=== PATIENT | female | born 1985 | race Caucasian/White ===

== ENCOUNTER 2021-07-21 05:45 | Emergency (ER) | payer SELFPAY ==
[~2021-07-21] VITALS: Ht 160 cm; Wt 72.6 kg
[2021-07-21 05:49] VITALS: BP_SYST 131
--- NOTE | 2021-07-21 05:55 | NUR ---
36 YR OLD FEMALE WITH COMPLAINT OF SUSPECTED KIDNEY INFECTION, PT STATES SHE HAS A LONG HISTORY AND HAS THE SYMPTOMS OF LOWER BACK PAIN 10/10, FEVER AND BURNING WITH URINATION. PT IS AUDIBLY CRYING IN PAIN, PT DENIES ANY
[2021-07-21 06:09] LABS: BILIRUBIN,URINE NEGATIVE (NEGATIVE); BLOOD, URINE 3+ (NEGATIVE); CLARITY/URINE CLEAR (CLEAR); COLOR,URINE YELLOW (YELLOW); GLUCOSE,URINE NEGATIVE (NEGATIVE); KETONES,URINE 2+ (NEGATIVE); LEUKOCYTE ESTERASE ,URINE 2+ (NEGATIVE); NITRITE, URINE NEGATIVE (NEGATIVE); PROTEIN URINE NEGATIVE (NEGATIVE); UROBILINOGEN,URINE 0.2 (0.2-1.0)
[2021-07-21 06:18] LABS: BACTERIA,URINE MODERATE /HPF (None Seen)
[2021-07-21 06:24] LABS: BARBITURATE, URINE NEGATIVE (NEG <=200); METHAMPHETAMINES SCREEN,URINE NEGATIVE (NEG <=500); URINE AMPHETAMINE NEGATIVE (NEG <=500)
[2021-07-21 06:25] LABS: BENZODIAZEPINE, URINE NEGATIVE (NEG <=150); CANNABINOID, URINE NEGATIVE (NEG <=50); COCAINE, URINE NEGATIVE (NEG <=150); OPIATE, URINE NEGATIVE (NEG <=100); PHENCYCLIDINE SCREEN,URINE NEGATIVE (NEG <=25); UR TRICYCLIC ANTIDEPRESSANTS NEGATIVE (NEG <=300); URINE METHADONE NEGATIVE (NEG <=200); URINE OXYCODONE SCREEN NEGATIVE (NEG <=100); URINE PROPOXYPHENE SCREEN NEGATIVE (NEG <=300)
[2021-07-21 06:27] LABS: HEMATOCRIT 41.5 % (36-48); HEMOGLOBIN 14.3 g/dL (12.0-16.0); MEAN CORPUSCULAR HEMOGLOBIN 31 pg (27-31); MEAN CORPUSCULAR HGB CONC 35 % (32-36); MEAN CORPUSCULAR VOLUME 89 fL (79.0-98.0); PLATELET COUNT (AUTO) 115 K/uL (130-430); RED BLOOD CELL COUNT(AUTO) 4.66 MIL/uL (4.2-6.2); RED CELL DISTRIBUTION WIDTH 13.2 % (9.0-15.0); WHITE BLOOD COUNT (AUTO) 3.2 K/uL (4.8-10.8)
--- NOTE | 2021-07-21 06:33 | NUR ---
RECEIVED PT FROM TRIAGE AMBULATE WITH STEADY GAIT C/O DYSURIA AND LOWER BACK PAIN X2 DAYS AND WORST THIS MORNING. PT STATED THE SHE TOOK UNPRESCRIBED BACTRIM AT HOME, SHE STATED THAT SHE HAS THE SAME SYMTOMS WHEN SHE HAD KIDNEY INFECTION FROM THE PAST. PER PT SHE ALSO HAVE PERINEAL IRRITATION. PMH:DENIES PRESENTED HERE AAO, NO SOB NOTED AND CRYING. WILL CONTINUE TO MONITOR.
[2021-07-21 06:34] LABS: CREATININE 0.91 mg/dL (0.55-1.30); POTASSIUM 3.9 mmol/L (3.5-5.1)
[2021-07-21 06:41] LABS: CALCIUM 6.9 mg/dL (8.4-11.0)
[2021-07-21] MEDS ORDERED: KETOROLAC TROMETHAMINE 60 MG/2 ML VIAL IM ONE (06:45)
[2021-07-21 06:54] LABS: C-REACTIVE PROTEIN QUANT 1.1 mg/dL (0-0.5)
[2021-07-21 07:05] LABS: BAND % (MANUAL) 4 % (0-6); BASOPHILS % (MANUAL) 0 % (0-2); EOSINOPHILS % (MANUAL) 5 % (0-7); LYMPHOCYTES % (MANUAL) 22 % (20-46); MONOCYTES % (MANUAL) 3 % (0-11)
[2021-07-21] MEDS ORDERED: MORPHINE 4 MG INJ. 4 MG/ML VIAL IM ONE (07:45)
[2021-07-21] MEDS ORDERED: HYDR-3917 PO (08:24)
[2021-07-21] MEDS ORDERED: TRAM50TA2 PO (08:39)
[2021-07-21 09:34] VITALS: BP_SYST 131
--- NOTE | 2021-07-21 09:35 | NUR ---
Patient given written and verbal discharge instructions and verbalizes understanding. ER MD discussed with patient the results and treatment provided. Patient in stable condition. ID arm band removed. Rx of TRAMADOL, NORCO given. Patient educated on pain management and to follow up with PMD. Pain Scale 5/10. Opportunity for questions provided and answered. Medication side effect fact sheet provided.
[2021-07-22] MEDS ORDERED: AMOX-423 PO (14:18)
== END 2021-07-21 09:35 | disposition home or self-care (01) ==
LOC: SED 05:45
DX: O26.891 Other specified pregnancy related conditions, first trimester (principal); M54.50 Low back pain, unspecified; Z3A.01 Less than 8 weeks gestation of pregnancy
CPT/HCPCS: 36415; 74176; 76376; 80048; 80307; 81000; 81025; 82150; 83690; 84702; 84703; 85007; 85027; 86140; 87086; 96372; 99284; J1885; J2270

== ENCOUNTER 2021-07-22 12:10 | Emergency (ER) | payer SELFPAY ==
[~2021-07-22] VITALS: Ht 160 cm; Wt 72.6 kg
[~2021-07-22 12:10] MED LIST: HYDR-3917 PO; TRAM50TA2 PO
[2021-07-22 12:20] VITALS: BP_SYST 115
--- NOTE | 2021-07-22 12:30 | NUR ---
Pt presents to ER BIB self c/o vaginal discomfort with discharge and trace amounts of blood at external labia. Pt states recent use and discontinuance of Bactrim. VS wnl pt aaox4.
--- NOTE | 2021-07-22 13:30 | NUR ---
PT with BS for MSE.
[2021-07-22] MEDS ORDERED: DIPHENHYDRAMINE HCL 25 MG CAPSULE PO ONE (13:45)
[2021-07-22 14:10] LABS: BILIRUBIN,URINE NEGATIVE (NEGATIVE); BLOOD, URINE 1+ (NEGATIVE); CLARITY/URINE CLEAR (CLEAR); COLOR,URINE YELLOW (YELLOW); GLUCOSE,URINE NEGATIVE (NEGATIVE); KETONES,URINE 3+ (NEGATIVE); LEUKOCYTE ESTERASE ,URINE 2+ (NEGATIVE); NITRITE, URINE NEGATIVE (NEGATIVE); PROTEIN URINE TRACE (NEGATIVE); UROBILINOGEN,URINE 0.2 (0.2-1.0)
[2021-07-22] MEDS ORDERED: AMOXICILLIN/CLAVULANATE POTASSIUM 875 MG TABLET PO ONE (14:15)
[2021-07-22] MEDS ORDERED: AMOX-423 PO (14:18)
[2021-07-22 14:22] LABS: BACTERIA,URINE FEW /HPF (None Seen); MUCUS,URINE 1+ /LPF (None Seen)
[2021-07-22 14:37] VITALS: BP_SYST 115
--- NOTE | 2021-07-22 14:38 | NUR ---
Patient given written and verbal discharge instructions and verbalizes understanding. ER MD discussed with patient the results and treatment provided. Patient in stable condition. ID arm band removed. Rx of amoxicillin given. Opportunity for questions provided and answered. Medication side effect fact sheet provided.
== END 2021-07-22 14:38 | disposition home or self-care (01) ==
LOC: SED 12:10
DX: O23.11 Infections of bladder in pregnancy, first trimester (principal); Z3A.01 Less than 8 weeks gestation of pregnancy; Z88.8 Allergy status to other drugs, medicaments and biological substances; Z79.899 Other long term (current) drug therapy
CPT/HCPCS: 81000; 81025; 87086; 99283; Q0163